=== PATIENT | male | born 1945 | race Caucasian/White ===

== ENCOUNTER 2017-07-08 09:23 | Day surgery (SDC) | payer BC ==
[~2017-07-08] VITALS: Ht 182.9 cm; Wt 95.2 kg
--- NOTE | ~2017-07-08 | EGD ---
EGD REPORT [facility] [address] [address] NAME: RODY COLE : [birth year] STATUS : REG [facility]#: [id number] AGE: 71 ADM/REG DATE : 07/08/17 MR#: [id number] REPORT SERV DATE: 07/08/17 DICTATED BY: COLIN MENENDEZ DATE: 07/08/17 REPORT STATUS : Draft TRANSCRIBED BY: [employer] DATE: 07/08/17 [facility] Patient Name: Rody Cole Date of : 1945 Attending MD: COLIN MENENDEZ MD Procedure Date No Time: 07/08/2017 Procedure: Colonoscopy Indications: Chronic diarrhea Referring MD: ETELVINA FERNANDES Medicines: Propofol per Anesthesia Complications: No immediate complications. Procedure: Pre-Anesthesia Assessment: - ASA Grade Assessment: III - A patient with severe systemic disease. - ASA Grade Assessment: III - A patient with severe systemic disease. After I obtained informed consent, the scope was passed under direct vision. Throughout the procedure, the patient's blood pressure, pulse, and oxygen saturations were monitored continuously. The CF [id number] was introduced through the anus and advanced to the cecum, identified by appendiceal orifice and ileocecal valve. The colonoscopy was performed without difficulty. The patient tolerated the procedure well. The quality of the bowel preparation was good. Findings: The perianal and digital rectal examinations were normal. Multiple medium-mouthed diverticula were found in the recto-sigmoid colon, in the sigmoid colon and in the descending colon. Internal hemorrhoids were found during retroflexion and were Grade I (internal hemorrhoids that do not prolapse). The rest of the colon was normal. Random biopsies of the colon were obtained to rule out microscopic colitis. Impression: - Diverticulosis in the recto-sigmoid colon, in the sigmoid colon and in the descending colon. - Internal hemorrhoids. Recommendation: - Patient has a contact number available for emergencies. The signs and symptoms of potential delayed complications were discussed with the patient. Return to normal activities tomorrow. Written discharge instructions were provided to the patient. EGD REPORT [address] [address] NAME: RODY COLE : [birth year] STATUS : REG [facility]#: [id number] AGE: 71 ADM/REG DATE : 07/08/17 MR#: [id number] REPORT SERV DATE: 07/08/17 DICTATED BY: COLIN MENENDEZ DATE: 07/08/17 REPORT STATUS : Draft TRANSCRIBED BY: [employer] DATE: 07/08/17 - Regular diet. - Patient has a contact number available for emergencies. The signs and symptoms of potential delayed complications were discussed with the patient. Return to normal activities tomorrow. Written discharge instructions were provided to the patient. - Continue present medications. Procedure Code(s): --- Professional --- 44931, Colonoscopy, flexible, proximal to splenic flexure; diagnostic, with or without collection of specimen(s) by brushing or washing, with or without colon decompression (separate procedure) Diagnosis Code(s): --- Professional --- K64.0, First degree hemorrhoids K57.30, Diverticulosis of large intestine without perforation or abscess without bleeding K52.9, Noninfective gastroenteritis and colitis, unspecified CPT copyright 2013 [employer]. All rights reserved. The codes documented in this report are preliminary and upon systems test engineer review may be revised to meet current compliance requirements. Colin Menendez MD COLIN MENENDEZ MD 07/08/2017 10:30 AM This report has been signed electronically. Number of Addenda: 0 Note Initiated On: 07/08/2017 9:59 AM Scope Withdrawal Time 0 hours 7 minutes 20 seconds [id number] [place] [address]
--- NOTE | ~2017-07-08 | EGD ---
EGD REPORT [facility] [address] [address] NAME: RODY COLE : [birth year] STATUS : REG [facility]#: [id number] AGE: 71 ADM/REG DATE : 07/08/17 MR#: [id number] REPORT SERV DATE: 07/08/17 DICTATED BY: COLIN MENENDEZ DATE: 07/08/17 REPORT STATUS : Draft [facility]ANSCRIBED BY: [facility] DATE: 07/08/17 [facility] Patient Name: Rody Cole Date of : 1945 Attending MD: COLIN MENENDEZ MD Procedure Date No Time: 07/08/2017 Procedure: Upper GI endoscopy Indications: Dysphagia, Diarrhea Referring MD: ETELVINA FERNANDES Medicines: Propofol per Anesthesia Complications: No immediate complications. Procedure: Pre-Anesthesia Assessment: - ASA Grade Assessment: III - A patient with severe systemic disease. After obtaining informed consent, the endoscope was passed under direct vision. Throughout the procedure, the patient's blood pressure, pulse, and oxygen saturations were monitored continuously. The GIF [id number] was introduced through the mouth, and advanced to the second part of duodenum. The upper GI endoscopy was accomplished without difficulty. The patient tolerated the procedure well. Findings: The examined esophagus was normal. Diffuse mild inflammation characterized by erosions and erythema was found in the stomach. Biopsies were taken with a cold forceps for histology. The examined duodenum was normal. Biopsies were taken with a cold forceps for histology. Impression: - Normal esophagus. - Chronic gastritis. Biopsied. - Normal examined duodenum. Biopsied. Recommendation: - Patient has a contact number available for emergencies. The signs and symptoms of potential delayed complications were discussed with the patient. Return to normal activities tomorrow. Written discharge instructions were provided to the patient. - Regular diet. - Patient has a contact number available for emergencies. The signs and symptoms of potential delayed complications were discussed with the patient. Return to normal activities tomorrow. Written discharge EGD REPORT [facility] [id number] [place]. [address] NAME: RODY COLE : [birth year] STATUS : REG [facility]#: [id number] AGE: 71 ADM/REG DATE : 07/08/17 MR#: [id number] REPORT SERV DATE: 07/08/17 DICTATED BY: COLIN MENENDEZ. DATE: 07/08/17 REPORT STATUS : Draft TRANSCRIBED BY: [employer] DATE: 07/08/17 instructions were provided to the patient. - Regular diet. - Patient has a contact number available for emergencies. The signs and symptoms of potential delayed complications were discussed with the patient. Return to normal activities tomorrow. Written discharge instructions were provided to the patient. - Continue present medications. Procedure Code(s): --- Professional --- 38924, Esophagogastroduodenoscopy, flexible, transoral; with biopsy, single or multiple Diagnosis Code(s): --- Professional --- K29.50, Unspecified chronic gastritis without bleeding R13.10, Dysphagia, unspecified R19.7, Diarrhea, unspecified CPT copyright 2013 [employer]. All rights reserved. The codes documented in this report are preliminary and upon wash test checker review may be revised to meet current compliance requirements. Colin Menendez MD COLIN MENENDEZ MD 07/08/2017 10:16 AM This report has been signed electronically. Number of Addenda: 0 Note Initiated On: 07/08/2017 10:04 AM Scope Withdrawal Time 0 hours 0 minutes 0 seconds [id number] [place] [address]
[~2017-07-08 09:23] MED LIST: AMB10 PO; BENTYL10 PO; BUSPAR15 M1 PO; MIRAPEX5 PO; PRIN20 PO; PROTONIX PO; PROZ10 PO
== END 2017-07-08 23:59 | disposition home or self-care (01) ==
LOC: DMU 09:23
PROVIDERS: Internal Medicine Gastroenterology
PROC: 0DB68ZX Excision of Stomach, Via Natural or Artificial Opening Endoscopic, Diagnostic (ICD-10-PCS; principal; 2017-07-08 11:00)
PROC: 0DBE8ZX Excision of Large Intestine, Via Natural or Artificial Opening Endoscopic, Diagnostic (ICD-10-PCS; 2017-07-08 11:00)
DX: K29.50 Unspecified chronic gastritis without bleeding (principal); K57.30 Diverticulosis of large intestine without perforation or abscess without bleeding; K64.0 First degree hemorrhoids; I10 Essential (primary) hypertension; K52.9 Noninfective gastroenteritis and colitis, unspecified; G47.33 Obstructive sleep apnea (adult) (pediatric); M19.90 Unspecified osteoarthritis, unspecified site; K21.9 Gastro-esophageal reflux disease without esophagitis; F41.9 Anxiety disorder, unspecified; G25.81 Restless legs syndrome; G62.9 Polyneuropathy, unspecified; Z96.643 Presence of artificial hip joint, bilateral; Z98.1 Arthrodesis status; Z90.89 Acquired absence of other organs; Z88.5 Allergy status to narcotic agent; Z98.41 Cataract extraction status, right eye; Z96.1 Presence of intraocular lens; Z98.42 Cataract extraction status, left eye; Z96.611 Presence of right artificial shoulder joint; Z79.899 Other long term (current) drug therapy; Z98.890 Other specified postprocedural states
CPT/HCPCS: 88305; 88342